=== PATIENT | male | born 1950 | race African-American/Black ===

== ENCOUNTER 2016-04-29 17:54 | Emergency (ER) | payer OTHER, MEDICAID ==
[2016-04-29 17:59] VITALS: BP 187/83; BMI 22.1
--- NOTE | 2016-04-29 18:17 | DR.GENAD ---
HPI - PCP Primary Care Physician: chuck - HPI Comment HPI Comment: Patient reports that he has noticed blood in his stool for about a week and in his urine for three days. Patient not aware of past health maintenance - Complaint/Symptoms Chief Complaint Doctors Comments: Bloody urine and stool Chief Complaint:: patient stated he has been bleeding brom his rectum for 5 days and bleeding from his penis for 3 days. he stated he thought today was a good day to get it checked out. Self Treatment fo Chief Complaint: none - Nurses notes reviewed Nurses Notes Review: Yes - Source History Provided: Patient - Mode of Arrival Mode of Arrival: Ambulatory - Timing Onset of Chief Complaint: 04/22/16 PMH - PMH Past Medical History: Yes Past Medical History: Coronary Artery Disease, CVA Past Surgical History: Yes Surgical History: Angioplasty/Stents - Family History History of Family Medical Conditions: Yes Family Medical History: Diabetes Mellitus, NC, Sudden Cardiac , Hypertension - Social History Does patient currently use any type of tobacco product: No Have you used tobacco products in the last 12 months: No Type of Tobacco Use: None Does any household member use tobacco: No Alcohol Use: None Do you use any recreational Drugs:: No Lives With: Family Lives Where: Home - infectious screening In the last 2 months have you had wt loss of >10#?: NO Have you had fever, night sweats or hemotysis?: No Have you traveled outside the country in the last 6 months?: No Isolation: Standard ROS - Review of Systems Constitutional: No Symptoms Reported Eyes: No Symptoms Reported ENTM: No Symptoms Reported Respiratoy: No Symptoms Reported Cardiovascular: No Symptoms Reported Gastrointestinal/Abdominal: See HPI Genitourinary: Hematuria Neurological: No Symptoms Reported Musculoskeletal: No Symptoms Reported Integumentary: No Symptoms Reported Hematologic/Lymphatic: No Symptoms Reported Endocrine: No Symptoms Reported Psychiatric: No Symptoms Reported All Other Systems: Reviewed and Negative PE - Vital Signs Vitals: Temperature 98.6 F Pulse Rate 96 Respiratory Rate 16 Blood Pressure [Right Radial 164/73 Artery] Blood Pressure [Right Arm] 150/54 Blood Pressure 187/83 O2 Sat by Pulse Oximetry 100 - General Limitations: No Limitations General Appearance: Alert, In No Apparent Distress - Head Head Exam: Normal Inspection - Eyes Eye exam: Normal Appearance, PERRL, EOMI - ENT ENT Exam: Normal Exam External Ear Exam: Normal External Inspection TM/Canal Exam: Bilateral Normal Nose Exam: Normal Nose Exam Mouth Exam: Normal Inspection Throat Exam: Normal Inspection - Neck Neck Exam: Normal Inspection, Full ROM - Chest Chest Inspection: Normal Inspection - Respiratory Respiratory Exam: Normal Lung Sounds Bilat Respiratory Exam: Bilateral Clear to Auscultation - Cardiovascular Cardiovascular Exam: Regular Rate, Normal Rhythm - Abdominal Exam Abdominal Exam: Normal Inspection, Normal Bowel Sounds, Soft - Extremities Extremities Exam: Normal Inspection - Back Back Exam: Normal Inspection, Full ROM - Neurologic Neurological Exam: Alert, Oriented X3, CN II-XII Intact - Psychiatric Psychiatric Exam: Normal Affect, Normal Mood - Skin Skin Exam: Warm, Dry, Intact, Normal Color - Other Exam Other Exam: CHUCK int hemorrhoids +hemoccult Course - Reevaluation 1st: Improved - Education/Counseling Education/Counseling: Patient, Family Educated On: Treatment, Diagnosis ROR - Labs Reviewed Laboratory Results Reviewed?: Yes Result Diagrams: 04/29/16 18:20 04/29/16 18:20 Laboratory: WBC 7.8 X10^3/uL (3.6-10.0) 04/29/16 18:20 RBC 4.37 X10^6/uL (4.7-6.0) L 04/29/16 18:20 Hgb 10.6 g/dL (13.5-18.0) L 04/29/16 18:20 Hct 34.2 % (42.0-54.0) L 04/29/16 18:20 MCV 78.4 fL (80.0-100.0) L 04/29/16 18:20 MCH 24.3 pg (27.0-34.0) L 04/29/16 18:20 MCHC 31.1 g/dL (33.0-35.0) L 04/29/16 18:20 RDW 16.8 % (11.6-16.5) H 04/29/16 18:20 Plt Count 253 X10^3/uL (150.0-450.0) 04/29/16 18:20 Plt Count Comment Adequate (ADEQUATE) 04/29/16 18:20 MPV 8.5 fL (7.4-11.0) 04/29/16 18:20 Neut % 44.5 % (42.0-75.0) 04/29/16 18:20 Lymph % 40.6 % (21.0-51.0) 04/29/16 18:20 Hyde % 12.2 % (0.0-13.0) 04/29/16 18:20 Eos % 1.9 % (0.9-2.9) 04/29/16 18:20 Baso % 0.8 % (0.2-1.0) 04/29/16 18:20 Neut # 3.5 x10^3/uL (2.2-4.8) 04/29/16 18:20 Lymph # 3.2 X10^3/uL (1.3-2.9) H 04/29/16 18:20 Hyde # 1.0 x10^3/uL (0.3-0.8) H 04/29/16 18:20 Eos # 0.1 x10^3/uL (0.0-0.2) 04/29/16 18:20 Baso # 0.1 X10^3/uL (0.0-0.1) 04/29/16 18:20 Absolute Nucleated RBC 0.1 /100WBC 04/29/16 18:20 Plt Morphology Comment Normal (NORMAL) 04/29/16 18:20 RBC Morphology Abnormal (NORMAL) 04/29/16 18:20 Hypochromasia 1+ A 04/29/16 18:20 Ovalocytes Present 04/29/16 18:20 Stomatocytes Present 04/29/16 18:20 INR Target Range - 04/29/16 18:20 INR 4.25 (0.8-1.3) H 04/29/16 18:20 PTT 62.4 SECONDS (22.9-36.5) H 04/29/16 18:20 PTT Comment - 04/29/16 18:20 Sodium 147 mmol/L (136-145) H 04/29/16 18:20 Corrected Sodium TNP 04/29/16 18:20 Potassium 3.9 mmol/L (3.5-5.1) 04/29/16 18:20 Chloride 111 mmol/L (98-107) H 04/29/16 18:20 Carbon Dioxide 28.1 mmol/L (21-32) 04/29/16 18:20 BUN 11 mg/dL (7-18) 04/29/16 18:20 Creatinine 1.02 mg/dL (0.70-1.30) 04/29/16 18:20 Est GFR (MDRD) Af Amer > 60 (>60) 04/29/16 18:20 Est GFR (MDRD) Non-Af > 60 (>60) 04/29/16 18:20 Glucose 90 mg/dL (65-99) 04/29/16 18:20 Calcium 8.6 mg/dL (8.5-10.1) 04/29/16 18:20 Corrected Calcium TNP 04/29/16 18:20 Total Bilirubin 0.40 mg/dL (0.2-1.0) 04/29/16 18:20 AST 24 Units/L (15-37) 04/29/16 18:20 ALT 25 Units/L (12-78) 04/29/16 18:20 Alkaline Phosphatase 143 Units/L (46-116) H 04/29/16 18:20 Total Protein 7.7 g/dL (6.4-8.2) 04/29/16 18:20 Albumin 3.5 g/dL (3.4-5.0) 04/29/16 18:20 Globulin 4.2 g/dL (2.5-4.5) 04/29/16 18:20 Albumin/Globulin Ratio 0.8 Ratio (1.1-2.1) L 04/29/16 18:20 Specimen Type Clean catch urine 04/29/16 19:01 Urine Color Red (YELLOW) 04/29/16 19:01 Urine Appearance Cloudy (CLEAR) 04/29/16 19:01 Urine pH 7.0 (5.0 - 8.0) 04/29/16 19:01 Ur Specific [place] 1.010 (1.000-1.030) 04/29/16 19:01 Urine Protein 3+ (NEGATIVE) 04/29/16 19:01 Urine Glucose (UA) Negative (NEGATIVE) 04/29/16 19: Urine Ketones Negative (NEGATIVE) 04/29/16 19:01 Urine Occult Blood 5+ (NEGATIVE) 04/29/16 19:01 Urine Nitrite Negative (NEGATIVE) 04/29/16 19:01 Urine Bilirubin Negative (NEGATIVE) 04/29/16 19:01 Urine Urobilinogen 2+ (NORMAL) 04/29/16 19:01 Ur Leukocyte Esterase 1+ (NEGATIVE) 04/29/16 19:01 Urine RBC Tntc /HPF (NEGATIVE) 04/29/16 19:01 Urine WBC Rare /HPF (NEGATIVE) 04/29/16 19:01 Ur Squamous Epith Cells Rare /HPF (NEGATIVE) 04/29/16 19:01 Amorphous Sediment Trace /HPF (NEGATIVE) 04/29/16 19:01 Urine Bacteria Negative /HPF (NEGATIVE) 04/29/16 19:01 Ur Culture Indicated? No/not indicated 04/29/16 19:01 Stool Description Fob tube 04/29/16 18:16 Stl Occult Blood (IFOB) Positive (NEGATIVE) A 04/29/16 18:16 reviewed - XRAY XRAY Interpreted by: Radiologist - Diagnosis Discharge Problem: Hematuria, gross, Rectal bleeding, Internal hemorrhoids, History of CVA ( cerebrovascular accident), Warfarin anticoagulation Anemia Qualifiers: Anemia type: unspecified type Qualified Code(s): D64.9 - Anemia, unspecified - Discharge Plan Disposition: HOME, SELF-CARE Condition: Stable - Follow ups/Referrals Follow ups/Referrals: Doyle HYLTON [Primary Care Provider] - 3 days - Instructions Instructions: Hematuria, Adult, Hemorrhoids, [id number] Additional Instructions: Follow up with PCP tomorrow. Patient advised to increase his fluid intake. Patient advised to skip a dose of coumadin.
[2016-04-29 18:36] LABS: BASOPHILS # (AUTO) 0.1 X10^3/uL (0.0-0.1); BASOPHILS % (AUTO) 0.8 % (0.2-1.0); EOSINOPHILS # (AUTO) 0.1 x10^3/uL (0.0-0.2); EOSINOPHILS % (AUTO) 1.9 % (0.9-2.9); HEMATOCRIT 34.2 % (42.0-54.0); HEMOGLOBIN 10.6 g/dL (13.5-18.0); LYMPHOCYTES # (AUTO) 3.2 X10^3/uL (1.3-2.9); LYMPHOCYTES % (AUTO) 40.6 % (21.0-51.0); MEAN CORPUSCULAR HEMOGLOBIN 24.3 pg (27.0-34.0); MEAN CORPUSCULAR HGB CONC 31.1 g/dL (33.0-35.0); MEAN CORPUSCULAR VOLUME 78.4 fL (80.0-100.0); MEAN PLATELET VOLUME 8.5 fL (7.4-11.0); MONOCYTES % (AUTO) 12.2 % (0.0-13.0); NEUTROPHILS # (AUTO) 3.5 x10^3/uL (2.2-4.8); NEUTROPHILS % (AUTO) 44.5 % (42.0-75.0); PLATELET COUNT 253 X10^3/uL (150.0-450.0); RED BLOOD COUNT 4.37 X10^6/uL (4.7-6.0); RED CELL DISTRIBUTION WIDTH 16.8 % (11.6-16.5); WHITE BLOOD COUNT 7.8 X10^3/uL (3.6-10.0)
[2016-04-29 18:45] LABS: ALANINE AMINOTRANSFERASE 25 Units/L (12-78); ALBUMIN 3.5 g/dL (3.4-5.0); ALKALINE PHOSPHATASE 143 Units/L (46-116); ASPARTATE AMINO TRANSFERASE 24 Units/L (15-37); BLOOD UREA NITROGEN 11 mg/dL (7-18); CALCIUM 8.6 mg/dL (8.5-10.1); CARBON DIOXIDE 28.1 mmol/L (21-32); CHLORIDE 111 mmol/L (98-107); CREATININE 1.02 mg/dL (0.70-1.30); GLUCOSE 90 mg/dL (65-99); HYPOCHROMASIA 1+; OVALOCYTES PRESENT; PLATELET MORPHOLOGY COMMENT NORMAL (NORMAL); SODIUM 147 mmol/L (136-145); STOMATOCYTES PRESENT; TOTAL PROTEIN 7.7 g/dL (6.4-8.2); eGFR BLACK RACES > 60 (>60); eGFR NON BLACK RACES > 60 (>60)
[2016-04-29 19:35] LABS: BILIRUBIN,URINE NEGATIVE (NEGATIVE); BLOOD/HEMOGLOBIN,URINE 5+ (NEGATIVE); GLUCOSE, URINE NEGATIVE (NEGATIVE); KETONES,URINE NEGATIVE (NEGATIVE); LEUKOCYTE ESTERASE ,URINE 1+ (NEGATIVE); NITRITES,URINE NEGATIVE (NEGATIVE); PROTEIN,URINE 3+ (NEGATIVE); UROBILINOGEN,URINE 2+ (NORMAL)
[2016-04-29 19:42] LABS: AMORPHOUS SEDIMENT,UR TRACE /HPF (NEGATIVE); APPEARANCE,URINE CLOUDY (CLEAR); BACTERIA,URINE NEGATIVE /HPF (NEGATIVE); COLOR,URINE RED (YELLOW); RBC,URINE TNTC /HPF (NEGATIVE); SQUAMOUS EPITHELIAL CELL,UR RARE /HPF (NEGATIVE)
[2016-04-29] MEDS ORDERED: NS 100 ML IV 100 ML IV ONE (21:13)
--- NOTE | 2016-04-29 21:46 | CT ---
EXAM: CT ABDOMEN WITH CONTRAST INDICATION: Rectal bleeding COMPARISION: No priors available for comparison TECHNIQUE: Axial CT examination of the abdomen was performed with intravenous contrast. The patient received i ntravenous contrast without adverse reaction. Coronal and sagittal reconstructions were created usin g the axial data. FINDINGS: The heart is enlarged. There is a heart valve prosthesis. There is a small right pleural effusion.. The liver, spleen, pancreas, adrenal glands, and kidneys are normal. The gallbladder has been remove d. There is no evidence of biliary ductal dilatation. The aorta and inferior vena cava are normal in caliber. The bowel loops are nonobstructed. No abnormal mass, lymphadenopathy, or fluid collection. The regional skeleton is intact. The appendix is normal. IMPRESSION: There is a small right pleural effusion and cardiomegaly noted in the images of the lower chest. No acute intra-abdominal abnormality identified. Reported By:
== END 2016-04-29 22:36 | disposition home or self-care (01) ==
LOC: ER 17:54
DX: K64.8 Other hemorrhoids (principal); R31.9 Hematuria, unspecified; K62.5 Hemorrhage of anus and rectum; D64.89 Other specified anemias; Z79.01 Long term (current) use of anticoagulants; I51.7 Cardiomegaly; J90 Pleural effusion, not elsewhere classified; Z86.73 Personal history of transient ischemic attack (TIA), and cerebral infarction without residual deficits
CPT/HCPCS: 36415; 74160; 80053; 81001; 82270; 85025; 85610; 85730; 96365; 99283; A4222

== ENCOUNTER → 2016-05-07 | Outpatient (CLI) | payer OTHER, MEDICAID ==
[2016-04-29 17:59] VITALS: BP 187/83
--- NOTE | 2016-05-07 13:01 | VAS ---
HISTORY: Stenosis. Dizziness. Study: Carotid duplex Doppler examination Comparison: December 09, 2014 Technique: Multiple kimble scale and color flow Doppler images of the right and left carotid arterial system were obtained. The vertebral arterial system was evaluated as well. Findings: Normal color flow Doppler is seen throughout the right and left carotid arterial system. No hemodyn amically significant stenosis is seen based on velocity criteria. The right and left vertebral heber festus demonstrate antegrade flow. IMPRESSION: 1. No hemodynamically significant stenosis. Reported By:
== END ==
LOC: RAD 11:06
PROVIDERS: ATTEND Physician Assistant
DX: I65.23 Occlusion and stenosis of bilateral carotid arteries (principal)
CPT/HCPCS: 93880

== ENCOUNTER → 2017-05-28 | Outpatient (CLI) | payer OTHER, MEDICAID ==
[2017-05-28 16:33] LABS: ALANINE AMINOTRANSFERASE 26 Units/L (12-78); ALBUMIN 3.6 g/dL (3.4-5.0); ALKALINE PHOSPHATASE 138 Units/L (46-116); ASPARTATE AMINO TRANSFERASE 21 Units/L (15-37); BLOOD UREA NITROGEN 13 mg/dL (7-18); CALCIUM 8.6 mg/dL (8.5-10.1); CARBON DIOXIDE 29.3 mmol/L (21-32); CHLORIDE 105 mmol/L (98-107); COR NA(FOR HYPERGLY) 143 mmol/L (136-145); CREATININE 1.04 mg/dL (0.70-1.30); SODIUM 141 mmol/L (136-145); TOTAL PROTEIN 7.7 g/dL (6.4-8.2); eGFR BLACK RACES > 60 (>60); eGFR NON BLACK RACES > 60 (>60)
[2017-05-28 17:03] LABS: BASOPHILS # (AUTO) 0.1 X10^3/uL (0.0-0.1); BASOPHILS % (AUTO) 1.7 % (0.2-1.0); EOSINOPHILS # (AUTO) 0.3 x10^3/uL (0.0-0.2); EOSINOPHILS % (AUTO) 3.6 % (0.9-2.9); HEMATOCRIT 37.6 % (42.0-54.0); HEMOGLOBIN 12.1 g/dL (13.5-18.0); LYMPHOCYTES # (AUTO) 2.5 X10^3/uL (1.3-2.9); LYMPHOCYTES % (AUTO) 35.6 % (21.0-51.0); MEAN CORPUSCULAR HEMOGLOBIN 25.9 pg (27.0-34.0); MEAN CORPUSCULAR HGB CONC 32.2 g/dL (33.0-35.0); MEAN CORPUSCULAR VOLUME 80.4 fL (80.0-100.0); MEAN PLATELET VOLUME 9.2 fL (7.4-11.0); MONOCYTES # (AUTO) 0.8 x10^3/uL (0.3-0.8); MONOCYTES % (AUTO) 11.3 % (0.0-13.0); NEUTROPHILS # (AUTO) 3.3 x10^3/uL (2.2-4.8); NEUTROPHILS % (AUTO) 47.8 % (42.0-75.0); PLATELET COUNT 181 X10^3/uL (150.0-450.0); RED BLOOD COUNT 4.67 X10^6/uL (4.7-6.0); RED CELL DISTRIBUTION WIDTH 14.8 % (11.6-16.5); WHITE BLOOD COUNT 6.9 X10^3/uL (3.6-10.0)
[2017-05-28 17:27] LABS: PLATELET MORPHOLOGY COMMENT NORMAL (NORMAL)
[2017-05-28 17:28] LABS: HYPOCHROMASIA SLIGHT
== END ==
LOC: LAB 15:46
PROVIDERS: ATTEND Internal Medicine
DX: K62.5 Hemorrhage of anus and rectum (principal); R79.1 Abnormal coagulation profile
CPT/HCPCS: 36415; 80053; 85025; 85610

== ENCOUNTER → 2017-06-21 | Outpatient (CLI) | payer OTHER, MEDICAID ==
[2017-06-21 08:01] LABS: BASOPHILS # (AUTO) 0.1 X10^3/uL (0.0-0.1); BASOPHILS % (AUTO) 0.9 % (0.2-1.0); EOSINOPHILS # (AUTO) 0.2 x10^3/uL (0.0-0.2); EOSINOPHILS % (AUTO) 3.1 % (0.9-2.9); HEMOGLOBIN 12.7 g/dL (13.5-18.0); LYMPHOCYTES # (AUTO) 2.2 X10^3/uL (1.3-2.9); LYMPHOCYTES % (AUTO) 31.4 % (21.0-51.0); MEAN CORPUSCULAR HEMOGLOBIN 25.7 pg (27.0-34.0); MEAN CORPUSCULAR HGB CONC 32.6 g/dL (33.0-35.0); MEAN CORPUSCULAR VOLUME 78.9 fL (80.0-100.0); MEAN PLATELET VOLUME 8.8 fL (7.4-11.0); MONOCYTES # (AUTO) 0.8 x10^3/uL (0.3-0.8); MONOCYTES % (AUTO) 12.1 % (0.0-13.0); NEUTROPHILS # (AUTO) 3.6 x10^3/uL (2.2-4.8); NEUTROPHILS % (AUTO) 52.5 % (42.0-75.0); PLATELET COUNT 199 X10^3/uL (150.0-450.0); RED BLOOD COUNT 4.94 X10^6/uL (4.7-6.0); RETICULOCYTE % 1.08 % (0.8-2.2); WHITE BLOOD COUNT 6.9 X10^3/uL (3.6-10.0)
[2017-06-21 08:21] LABS: HYPOCHROMASIA SLIGHT; PLATELET MORPHOLOGY COMMENT NORMAL (NORMAL)
== END ==
LOC: LAB 07:23
PROVIDERS: ATTEND Internal Medicine Cardiovascular Disease
DX: K62.5 Hemorrhage of anus and rectum (principal)
CPT/HCPCS: 36415; 83550; 85025; 85045